=== PATIENT | male | born 1980 | race Caucasian/White ===

== ENCOUNTER 2017-06-24 14:29 | Emergency (ER) | payer SELFPAY ==
[~2017-06-24] VITALS: Ht 188 cm; Wt 74.5 kg
[2017-06-24 14:35] VITALS: BP 130/76
== END 2017-06-24 15:11 | disposition home or self-care (01) ==
LOC: ED 15:09
DX: Z76.0 Encounter for issue of repeat prescription (principal); G40.909 Epilepsy, unspecified, not intractable, without status epilepticus
CPT/HCPCS: 99283

== ENCOUNTER 2018-01-23 08:44 | Emergency (ER) | payer BC ==
[~2018-01-23] VITALS: Ht 188 cm; Wt 75.2 kg
[2018-01-23 08:45] VITALS: BP 119/77
== END 2018-01-23 09:35 | disposition home or self-care (01) ==
LOC: ED 09:16
DX: R56.9 Unspecified convulsions (principal); Z76.0 Encounter for issue of repeat prescription
CPT/HCPCS: 99283

== ENCOUNTER 2018-08-08 14:27 | Emergency (ER) | payer BC, MEDICAID ==
[~2018-08-08] VITALS: Ht 185.4 cm; Wt 75.0 kg
[2018-08-08 14:44] VITALS: BP 139/79
== END 2018-08-08 15:27 | disposition home or self-care (01) ==
LOC: ED 15:15
DX: G40.909 Epilepsy, unspecified, not intractable, without status epilepticus (principal); Z76.0 Encounter for issue of repeat prescription
CPT/HCPCS: 99281

== ENCOUNTER 2020-02-02 23:48 | Emergency (ER) | payer BC, MEDICAID ==
[~2020-02-02] VITALS: Ht 182.9 cm; Wt 79.4 kg
[2020-02-03] MEDS ORDERED: LORazepam 1MG TABLET ONE (00:26)
[2020-02-03] MEDS ORDERED: LORazepam 1MG TABLET PO ONE (00:30)
--- NOTE | 2020-02-03 00:31 | NUR ---
Pt provided warm blankets.
[2020-02-03 00:54] LABS: BASOPHILS % (AUTO) 0 % (0-1); EOSINOPHILS % (AUTO) 2 % (1-7); LYMPHOCYTES # (AUTO) 1.03 x10^3/uL (1-3.4); LYMPHOCYTES % (AUTO) 18 % (22-44); MD NO; MEAN CORPUSCULAR HEMOGLOBIN 30.6 pg (27.5-34.5); MEAN CORPUSCULAR HGB CONC 33.6 g/dL (33.2-36.2); MEAN CORPUSCULAR VOLUME 90.8 fL (81-97); MEAN PLATELET VOLUME 8.9 fL (7.4-10.4); MONOCYTES # (AUTO) 0.36 x10^3/uL (0.2-0.8); MONOCYTES % (AUTO) 6 % (2-9); NEUTROPHILS % (AUTO) 73 % (42-75); PLATELET COUNT 144 x10^3/uL (130-400); RED BLOOD COUNT 4.98 x10^6/uL (4.38-5.82); RED CELL DISTRIBUTION WIDTH 12.3 % (9.4-14.8)
[2020-02-03 01:04] VITALS: BP 119/77
[2020-02-03 01:06] LABS: ALANINE AMINOTRANSFERASE 30 U/L (12-78); ALBUMIN 4.1 g/dL (3.4-5.0); ANION GAP 7 mmol/L (5-15); CALCIUM 8.9 mg/dL (8.5-10.1); CHLORIDE 110 mmol/L (98-107); CREATININE 1.39 mg/dL (0.7-1.3)
[2020-02-03 01:08] LABS: ALKALINE PHOSPHATASE 73 U/L (45-117); CREATINE KINASE, TOTAL 82 U/L (39-308); TOTAL PROTEIN 6.5 g/dL (6.4-8.2)
--- NOTE | 2020-02-03 01:54 | NUR ---
Patient given discharge instructions and they have confirmed that they understand the instructions. Patient ambulatory with steady gait.
== END 2020-02-03 01:56 | disposition home or self-care (01) ==
LOC: ED 02-03 01:30
DX: R61 Generalized hyperhidrosis (principal); R10.9 Unspecified abdominal pain; R51 Headache; T43.225A Adverse effect of selective serotonin reuptake inhibitors, initial encounter; T43.215A Adverse effect of selective serotonin and norepinephrine reuptake inhibitors, initial encounter; T50.995A Adverse effect of other drugs, medicaments and biological substances, initial encounter; Y92.89 Other specified places as the place of occurrence of the external cause
CPT/HCPCS: 36415; 80053; 82550; 83690; 85025; 93005; 99284

== ENCOUNTER 2021-03-23 14:35 | Emergency (ER) | payer BC ==
[~2021-03-23] VITALS: Ht 182.9 cm; Wt 79.0 kg
[2021-03-23 14:40] VITALS: BP 112/83
== END 2021-03-23 14:56 | disposition home or self-care (01) ==
LOC: ED 14:40
DX: G40.909 Epilepsy, unspecified, not intractable, without status epilepticus (principal); Z76.0 Encounter for issue of repeat prescription
CPT/HCPCS: 99281

== ENCOUNTER 2021-04-23 12:59 | Emergency (ER) | payer BC ==
[~2021-04-23] VITALS: Ht 182.9 cm; Wt 79.3 kg
[2021-04-23 13:11] VITALS: BP 132/72
== END 2021-04-23 13:27 | disposition home or self-care (01) ==
LOC: ED 13:17
DX: G40.909 Epilepsy, unspecified, not intractable, without status epilepticus (principal); Z76.0 Encounter for issue of repeat prescription
CPT/HCPCS: 99281